=== PATIENT | male | born 1950 | race Caucasian/White ===

== ENCOUNTER 2016-12-03 14:50 | Emergency (ER) | payer OTHER ==
[~2016-12-03] VITALS: Ht 182.9 cm; Wt 75.0 kg
--- NOTE | ~2016-12-03 | CR20 ---
[facility]. [facility] A Service of [facility] RADIOLOGY TEXT RESULTS PATIENT: MICHELLE DE JESUS LOCATION: SED : 54 UNIT #: [id number] AGE: [address]: JOEY HASTINGS SEX: M ORDER DR: [id number] [place] [id number] E MR#: [id number] Acc #: [id number] NAME: MICHELLE DE JESUS : 1950 SEX: M STUDY DATE/TIME: 12/03/2016 17:42 UNIT: SED ROOM: STUDY DESCRIPTION: CR Ankle Min 3 Views Lt Attending Physician: Joey Hastings R.N. Ordering Physician: Joey Hastings R.N. Primary Care Physician: Bernnan Giron M.D. MEDICAL IMAGING REPORT This report is preliminary unless electronic signature is present. EXAM Three views of the left ankle, 12/03/2016. HISTORY Left foot and ankle pain for 3 days after hitting on a fence. COMPARISON Left ankle radiographs, 06/14/2012. FINDINGS Left ankle soft tissue swelling laterally. No fracture or joint dislocation. Mild periarticular osteopenia. Mild spurring at the dorsum of the distal talus and at the mid foot. IMPRESSION 1. Mild left ankle soft tissue swelling laterally. 2. No acute osseous abnormality. 3. Mild periarticular osteopenia which may be on the basis of disuse. Dictated by... Sowmya Amato M.D. THIS IS AN ELECTRONICALLY VERIFIED REPORT Sowmya Amato M.D. at 12/05/2016 9:51 AM Lillie TD: 12/04/2016 13:23 JOB #: [id number] MEDICAL IMAGING REPORT Page 1 of 1
--- NOTE | ~2016-12-03 | US85 ---
[facility] A Service [facility] RADIOLOGY TEXT RESULTS PATIENT: MICHELLE DE JESUS LOCATION: SED : 54 UNIT #: [id number] AGE: [address]: JOEY HASTINGS SEX: M ORDER DR: [id number] [place] [id number] E MR#: [id number] Acc #: [id number] NAME: MICHELLE DE JESUS : 1950 SEX: M STUDY DATE/TIME: 12/03/2016 18:35 UNIT: SED ROOM: STUDY DESCRIPTION: [facility] or [facility] St[facility] Attending Physician: Joey Hastings R.N. Ordering Physician: Michelle Arceo Primary Care Physician: Brennan Giron M.D. MEDICAL IMAGING REPORT This report is preliminary unless electronic signature is present. EXAM Left lower extremity Doppler venous ultrasound DATE 12/03/2016 HISTORY Trauma to the left foot 3 days ago. Now with foot swelling for 3 days. Previous history of lower extremity deep venous thrombosis. FINDINGS TECHNIQUE Venous ultrasound examination of the left lower extremity was performed using grayscale, spectral Doppler and color flow Doppler imaging. FINDINGS The examination is negative. There is no evidence of left lower extremity deep venous thrombus from the groin to the lower calf. Visualized greater saphenous vein is also patent. IMPRESSION Negative examination. No evidence of left lower extremity deep venous thrombosis. Dictated by... Sowmya Amato M.D. THIS IS AN ELECTRONICALLY VERIFIED REPORT Sowmya Amato M.D. at 12/05/2016 9:52 AM [facility]/to [facility] A Service [facility] RADIOLOGY TEXT RESULTS PATIENT: MICHELLE DE JESUS LOCATION: SED : 54 UNIT #: [id number] AGE: [address]: JOEY HASTINGS SEX: M ORDER DR: TD: 12/04/2016 14:13 JOB #: [id number] MEDICAL IMAGING REPORT Page 1 of 1
--- NOTE | ~2016-12-03 | CR126 ---
[facility]. [facility] A Service of [facility] RADIOLOGY TEXT RESULTS PATIENT: MICHELLE DE JESUS LOCATION: SED : 54 UNIT #: [id number] AGE: [address]: JOEY HASTINGS SEX: M ORDER DR: [id number] [place] [id number] E MR#: [id number] Acc #: [id number] NAME: MICHELLE DE JESUS : 1950 SEX: M STUDY DATE/TIME: 12/03/2016 17:42 UNIT: SED ROOM: STUDY DESCRIPTION: CR Foot Complete Min 3 View Lt Attending Physician: Joey Hastings R.N. Ordering Physician: Joey Hastings R.N. Primary Care Physician: Brennan Giron M.D. MEDICAL IMAGING REPORT This report is preliminary unless electronic signature is present. EXAM 3 views of the left foot. Date: 12/03/2016. HISTORY Left foot and ankle pain and swelling for 3 days, hit leg on a fence. FINDINGS No fracture or joint dislocation. Mild spurring at the dorsum of the midfoot and the distal talus. Mild osteophytic change of the first MTP joint with mild hallux valgus configuration. No retained radiopaque foreign body is seen. There is mild periarticular osteopenia, which may be on the basis of disuse. IMPRESSION 1. No acute left foot findings. Mild degenerative change. 2. Mild peritubular osteopenia may be related to disuse. Dictated by... Sowmya Amato M.D. THIS IS AN ELECTRONICALLY VERIFIED REPORT Sowmya Amato M.D. at 12/05/2016 9:51 AM LLH/yan TD: 12/04/2016 13:19 JOB #: [id number] MEDICAL IMAGING REPORT Page 1 of 1
[~2016-12-03 14:50] MED LIST: ASPIRIN PO; ASPIRIN81 M2 PO; BYSTOLIC10 MG PO; KEFLEX500 M2 PO; LIPITOR20 MG PO
== END 2016-12-03 19:47 | disposition home or self-care (01) ==
LOC: SED 14:50
DX: S90.32XA Contusion of left foot, initial encounter (principal); S90.02XA Contusion of left ankle, initial encounter; I11.0 Hypertensive heart disease with heart failure; L89.94 Pressure ulcer of unspecified site, stage 4; Z86.73 Personal history of transient ischemic attack (TIA), and cerebral infarction without residual deficits; Z79.82 Long term (current) use of aspirin; Z86.718 Personal history of other venous thrombosis and embolism; W22.8XXA Striking against or struck by other objects, initial encounter; Y92.009 Unspecified place in unspecified non-institutional (private) residence as the place of occurrence of the external cause
CPT/HCPCS: 73610; 73630; 93971; 99284